=== PATIENT | female | born 2005 | race Caucasian/White ===

== ENCOUNTER 2023-04-10 13:24 | Emergency (ER) | payer BC ==
[~2023-04-10] VITALS: Ht 160 cm; Wt 49.9 kg
[2023-04-10 13:49] VITALS: BP 142/71; PULSE 66; RESP 17; TEMP 97.4; O2SAT 98
[2023-04-10 14:25] LABS: BASOPHILS % (AUTO) 0.2 % (0.0-2.0); HEMATOCRIT 40.8 % (36-48); HEMOGLOBIN 13.7 g/dL (12.0-16.0); LYMPHOCYTES # (AUTO) 0.6 K/uL (2.5-16.5); LYMPHOCYTES % (AUTO) 4.5 % (20.5-51.1); MEAN CORPUSCULAR HEMOGLOBIN 31 pg (27-31); MEAN CORPUSCULAR HGB CONC 33 g/dL (33-37); MEAN CORPUSCULAR VOLUME 92.2 fL (80-94); MONOCYTES # (AUTO) 0.4 K/uL (0.8-1.0); MONOCYTES % (AUTO) 2.9 % (1.7-9.3); NEUTROPHILS # (AUTO) 12.1 K/uL (1.8-7.7); NEUTROPHILS % (AUTO) 92.4 % (42.2-75.2); PLATELET COUNT (AUTO) 213 K/uL (140-450); RED BLOOD CELL COUNT(AUTO) 4.43 MIL/uL (4.20-5.40); RED CELL DISTRIBUTION WIDTH 14.7 % (11.6-13.7); WHITE BLOOD COUNT (AUTO) 13.1 K/uL (4.5-11.0)
[2023-04-10 14:38] LABS: ALBUMIN 3.9 g/dL (3.4-5.0); ANION GAP 18.1 (8-16); CALCIUM 8.5 mg/dL (8.5-10.1); CARBON DIOXIDE 21.2 mmol/L (21-32); CREATININE 0.9 mg/dL (0.6-1.3); TOTAL PROTEIN, SERUM 7.5 g/dL (6.4-8.2)
[2023-04-10 14:42] LABS: POTASSIUM 6.3 mmol/L (3.5-5.1)
[2023-04-10] MEDS ORDERED: PROCHLORPERAZINE 10 MG/2 ML VIAL IVP ONE (14:50)
[2023-04-10] MEDS ORDERED: diphenhydrAMINE 50 MG/ML VIAL IVP ONE (14:50)
[2023-04-10 15:45] VITALS: O2SAT 98
[2023-04-10] MEDS ORDERED: ONDA8TAB87 PO (16:29)
== END 2023-04-10 16:51 | disposition home or self-care (01) ==
LOC: MED 13:24
DX: R11.2 Nausea with vomiting, unspecified (principal); R10.13 Epigastric pain; Z79.899 Other long term (current) drug therapy
CPT/HCPCS: 36415; 80053; 81025; 83690; 84703; 85025; 96374; 96375; 99284; J0780; J1200

== ENCOUNTER 2023-05-25 16:26 | Emergency (ER) | payer BC ==
[~2023-05-25] VITALS: Ht 167.6 cm; Wt 51.7 kg
[~2023-05-25 16:26] MED LIST: ONDA8TAB87 PO
[2023-05-25 16:37] VITALS: BP 109/83; PULSE 85; RESP 18; TEMP 97.4; O2SAT 100
[2023-05-25] MEDS ORDERED: NACL 0.9% 1,000 ML IV ONE (16:50)
[2023-05-25] MEDS ORDERED: ONDANSETRON 4 MG/2 ML VIAL IVP ONE (16:50)
[2023-05-25 17:32] LABS: BASOPHILS # (AUTO) 0.2 K/uL (0.00-0.22); BASOPHILS % (AUTO) 0.9 % (0.0-2.0); EOSINOPHILS % (AUTO) 0.1 % (0.0-4.0); HEMATOCRIT 45.9 % (36-48); HEMOGLOBIN 15.6 g/dL (12.0-16.0); LYMPHOCYTES # (AUTO) 0.9 K/uL (2.5-16.5); LYMPHOCYTES % (AUTO) 4.3 % (20.5-51.1); MEAN CORPUSCULAR HEMOGLOBIN 31 pg (27-31); MEAN CORPUSCULAR HGB CONC 34 g/dL (33-37); MONOCYTES # (AUTO) 0.9 K/uL (0.8-1.0); NEUTROPHILS # (AUTO) 19.9 K/uL (1.8-7.7); NEUTROPHILS % (AUTO) 90.7 % (42.2-75.2); PLATELET COUNT (AUTO) 252 K/uL (140-450); RED BLOOD CELL COUNT(AUTO) 4.98 MIL/uL (4.20-5.40); RED CELL DISTRIBUTION WIDTH 14.7 % (11.6-13.7); WHITE BLOOD COUNT (AUTO) 21.9 K/uL (4.5-11.0)
[2023-05-25] MEDS ORDERED: METOCLOPRAMIDE 10 MG/2 ML INJ VIAL IVP ONE (17:40)
[2023-05-25 17:58] LABS: ALBUMIN 4.4 g/dL (3.4-5.0); ANION GAP 19.1 (8-16); CALCIUM 9.8 mg/dL (8.5-10.1); CARBON DIOXIDE 19.8 mmol/L (21-32); POTASSIUM 3.9 mmol/L (3.5-5.1); TOTAL PROTEIN, SERUM 7.7 g/dL (6.4-8.2)
[2023-05-25] MEDS ORDERED: diphenhydrAMINE 50 MG/ML VIAL IVP ONE (18:25)
[2023-05-25] MEDS ORDERED: HALOPERIDOL IM 5 MG/ML VIAL IVP ONE (19:15)
[2023-05-25 20:06] VITALS: TEMP 97.8
[2023-05-25 20:35] VITALS: BP 119/69; PULSE 64; RESP 12; O2SAT 99
== END 2023-05-25 20:21 | disposition home or self-care (01) ==
LOC: MED 16:26
DX: R11.15 Cyclical vomiting syndrome unrelated to migraine (principal); Z79.899 Other long term (current) drug therapy
CPT/HCPCS: 36415; 80053; 83690; 84703; 85025; 96361; 96374; 96375; 99284; J1200; J1630; J2765; J7030

== ENCOUNTER 2023-06-19 17:51 | Emergency (ER) | payer BC ==
[~2023-06-19] VITALS: Ht 167.6 cm; Wt 52.6 kg
[2023-06-19 18:23] VITALS: BP 122/66; PULSE 108; RESP 20; TEMP 97.9; O2SAT 97
[2023-06-19] MEDS ORDERED: ONDANSETRON 4 MG/2 ML VIAL IVP ONE (18:40)
[2023-06-19] MEDS ORDERED: NACL 0.9% 1,000 ML IV ONE (18:40)
[2023-06-19 19:25] LABS: HEMATOCRIT 43.3 % (36-48); HEMOGLOBIN 14.4 g/dL (12.0-16.0); MEAN CORPUSCULAR HEMOGLOBIN 32 pg (27-31); MEAN CORPUSCULAR HGB CONC 33 g/dL (33-37); MEAN CORPUSCULAR VOLUME 95.2 fL (80-94); PLATELET COUNT (AUTO) 240 K/uL (140-450); RED BLOOD CELL COUNT(AUTO) 4.54 MIL/uL (4.20-5.40); WHITE BLOOD COUNT (AUTO) 22.4 K/uL (4.5-11.0)
[2023-06-19 19:37] LABS: APPEARANCE,URINE CLEAR (CLEAR); BILIRUBIN,URINE 1+ (NEGATIVE); BLOOD, URINE 2+ (NEGATIVE); COLOR,URINE YELLOW (YELLOW); LEUKOCYTE ESTERASE ,URINE NEGATIVE (NEGATIVE); NITRITE, URINE NEGATIVE (NEGATIVE); PROTEIN,URINE TRACE (NEGATIVE); UGLUCOSE NEGATIVE (NEGATIVE); UROBILINOGEN,URINE 0.2 EU/dL (0.2 - 1)
[2023-06-19] MEDS ORDERED: METOCLOPRAMIDE 10 MG/2 ML INJ VIAL IVP ONE (19:40)
[2023-06-19] MEDS ORDERED: diphenhydrAMINE 50 MG/ML VIAL IVP ONE (19:40)
[2023-06-19 19:44] LABS: ALBUMIN 4.7 g/dL (3.4-5.0); ANION GAP 21.5 (8-16); CALCIUM 9.6 mg/dL (8.5-10.1); CARBON DIOXIDE 20.4 mmol/L (21-32); CREATININE 0.9 mg/dL (0.6-1.3); POTASSIUM 3.9 mmol/L (3.5-5.1); TOTAL BILIRUBIN 1.1 mg/dL (0.0-1.0); TOTAL PROTEIN, SERUM 8.2 g/dL (6.4-8.2)
[2023-06-19 19:45] LABS: LYMPHOCYTES % (MANUAL) 4 % (20-46); MONOCYTES % (MANUAL) 2 % (5-12); PLATELET ESTIMATE ADEQUATE
[2023-06-19 19:57] LABS: BACTERIA,URINE 1+ /HPF (None Seen); RBC,URINE 0-5 /HPF (0-5); SQUAMOUS EPITHELIAL CELL,UR 4-10 (MOD) /LPF (0-3 (FEW)); WBC,URINE 0-5 /HPF (0-5)
[2023-06-19 23:10] VITALS: BP 122/66; PULSE 108; RESP 20; TEMP 97.9; O2SAT 97
== END 2023-06-19 23:10 | disposition home or self-care (01) ==
LOC: MED 17:51
DX: F10.129 Alcohol abuse with intoxication, unspecified (principal); R11.2 Nausea with vomiting, unspecified; Z79.899 Other long term (current) drug therapy; Y90.9 Presence of alcohol in blood, level not specified
CPT/HCPCS: 36415; 80053; 81001; 81025; 83690; 85025; 96361; 96374; 96375; 99284; J1200; J2405; J2765; J7030

== ENCOUNTER 2023-07-01 11:17 | Emergency (ER) | payer BC ==
[~2023-07-01] VITALS: Ht 167.6 cm; Wt 53.5 kg
[2023-07-01 11:56] VITALS: BP 113/74; PULSE 103; RESP 18; TEMP 97.4; O2SAT 99
[2023-07-01] MEDS ORDERED: ONDANSETRON 4 MG/2 ML VIAL IVP ONE (12:15)
[2023-07-01] MEDS ORDERED: FAMOTIDINE 20 MG/2 ML VIAL IVP ONE (12:15)
[2023-07-01] MEDS ORDERED: NACL 0.9% 1,000 ML IV ONE (12:15)
[2023-07-01] MEDS ORDERED: diphenhydrAMINE 50 MG/ML VIAL IVP ONE (12:20)
[2023-07-01] MEDS ORDERED: METOCLOPRAMIDE 10 MG/2 ML INJ VIAL IVP ONE (12:20)
[2023-07-01 12:42] LABS: BASOPHILS # (AUTO) 0.1 K/uL (0.00-0.22); BASOPHILS % (AUTO) 0.3 % (0.0-2.0); EOSINOPHILS % (AUTO) 0.1 % (0.0-4.0); HEMATOCRIT 41.8 % (36-48); HEMOGLOBIN 14.1 g/dL (12.0-16.0); LYMPHOCYTES # (AUTO) 1.5 K/uL (2.5-16.5); LYMPHOCYTES % (AUTO) 8.3 % (20.5-51.1); MEAN CORPUSCULAR HEMOGLOBIN 32 pg (27-31); MEAN CORPUSCULAR HGB CONC 34 g/dL (33-37); MEAN CORPUSCULAR VOLUME 93.9 fL (80-94); MONOCYTES # (AUTO) 0.6 K/uL (0.8-1.0); MONOCYTES % (AUTO) 3.6 % (1.7-9.3); NEUTROPHILS # (AUTO) 15.4 K/uL (1.8-7.7); NEUTROPHILS % (AUTO) 87.7 % (42.2-75.2); PLATELET COUNT (AUTO) 278 K/uL (140-450); RED BLOOD CELL COUNT(AUTO) 4.45 MIL/uL (4.20-5.40); RED CELL DISTRIBUTION WIDTH 13.2 % (11.6-13.7); WHITE BLOOD COUNT (AUTO) 17.5 K/uL (4.5-11.0)
[2023-07-01 12:52] LABS: ALBUMIN 4.2 g/dL (3.4-5.0); ANION GAP 18.2 (8-16); CALCIUM 9.3 mg/dL (8.5-10.1); CARBON DIOXIDE 22.4 mmol/L (21-32); CREATININE 0.9 mg/dL (0.6-1.3); POTASSIUM 3.6 mmol/L (3.5-5.1); TOTAL BILIRUBIN 0.5 mg/dL (0.0-1.0); TOTAL PROTEIN, SERUM 7.8 g/dL (6.4-8.2)
[2023-07-01] MEDS ORDERED: HALOPERIDOL IM 5 MG/ML VIAL IM ONE (13:05)
[2023-07-01] MEDS ORDERED: FAMO-90 PO (13:25)
[2023-07-01] MEDS ORDERED: METO-485 PO (13:25)
[2023-07-01 14:11] VITALS: BP 134/80; PULSE 71; RESP 17; O2SAT 99
[2023-07-01 15:00] LABS: AMPHETAMINE, URINE NEGATIVE ng/ml (NEG <=1000); BARBITURATE, URINE NEGATIVE ng/ml (NEG <=200); BENZODIAZEPINE, URINE NEGATIVE ng/mL (NEG <=200); CANNABINOID, URINE POSITIVE ng/mL (NEG <=50); COCAINE, URINE NEGATIVE ng/mL (NEG <=300); OPIATE, URINE NEGATIVE ng/mL (NEG <=2000); PHENCYCLIDINE SCREEN,URINE NEGATIVE ng/mL (NEG <=25)
[2023-07-01 15:04] LABS: APPEARANCE,URINE CLEAR (CLEAR); BILIRUBIN,URINE NEGATIVE (NEGATIVE); BLOOD, URINE TRACE-I (NEGATIVE); COLOR,URINE YELLOW (YELLOW); LEUKOCYTE ESTERASE ,URINE NEGATIVE (NEGATIVE); NITRITE, URINE NEGATIVE (NEGATIVE); PH,URINE 7.5 (5.0-9.0); PROTEIN,URINE NEGATIVE (NEGATIVE); UGLUCOSE NEGATIVE (NEGATIVE); UROBILINOGEN,URINE 0.2 EU/dL (0.2 - 1)
[2023-07-01 15:59] LABS: BACTERIA,URINE 3+ /HPF (None Seen); MUCUS,URINE None Seen /LPF (None Seen); RBC,URINE 0-5 /HPF (0-5); TRICHOMONAS,URINE None Seen /HPF (None Seen); WBC,URINE 0-5 /HPF (0-5); YEAST,URINE None Seen /HPF (None Seen)
== END 2023-07-01 14:11 | disposition home or self-care (01) ==
LOC: MED 11:17
DX: R11.2 Nausea with vomiting, unspecified (principal); Z79.899 Other long term (current) drug therapy
CPT/HCPCS: 36415; 80053; 80305; 81001; 81025; 85025; 87086; 96361; 96372; 96374; 96375; 99284; J1200; J1630; J2405; J2765; J3490; J7030

== ENCOUNTER 2023-07-21 12:00 | Emergency (ER) | payer BC ==
[~2023-07-21] VITALS: Ht 162.6 cm; Wt 59.0 kg
[~2023-07-21 12:00] MED LIST changes: +FAMO-90 PO; +METO-485 PO
[2023-07-21 12:24] VITALS: BP 122/76; PULSE 89; RESP 18; TEMP 98; O2SAT 98
[2023-07-21] MEDS ORDERED: PROCHLORPERAZINE 10 MG/2 ML VIAL IVP ONE (12:40)
[2023-07-21] MEDS ORDERED: NACL 0.9% 1,000 ML IV SCH (12:40)
[2023-07-21] MEDS ORDERED: FAMOTIDINE 20 MG/2 ML VIAL IVP ONE (12:40)
[2023-07-21] MEDS ORDERED: LORazepam 2 MG/ML VIAL IVP ONE (12:40)
[2023-07-21 12:59] LABS: BASOPHILS % (AUTO) 0.2 % (0.0-2.0); HEMATOCRIT 41.5 % (36-48); HEMOGLOBIN 13.9 g/dL (12.0-16.0); LYMPHOCYTES # (AUTO) 0.8 K/uL (2.5-16.5); LYMPHOCYTES % (AUTO) 5.1 % (20.5-51.1); MEAN CORPUSCULAR HEMOGLOBIN 32 pg (27-31); MEAN CORPUSCULAR HGB CONC 34 g/dL (33-37); MEAN CORPUSCULAR VOLUME 94.8 fL (80-94); MONOCYTES # (AUTO) 0.3 K/uL (0.8-1.0); NEUTROPHILS # (AUTO) 14.7 K/uL (1.8-7.7); NEUTROPHILS % (AUTO) 92.7 % (42.2-75.2); PLATELET COUNT (AUTO) 237 K/uL (140-450); RED BLOOD CELL COUNT(AUTO) 4.38 MIL/uL (4.20-5.40); RED CELL DISTRIBUTION WIDTH 13.1 % (11.6-13.7); WHITE BLOOD COUNT (AUTO) 15.9 K/uL (4.5-11.0)
[2023-07-21 13:20] LABS: ANION GAP 20.7 (8-16); CALCIUM 9.2 mg/dL (8.5-10.1); CARBON DIOXIDE 20.1 mmol/L (21-32); CREATININE 0.9 mg/dL (0.6-1.3); POTASSIUM 3.8 mmol/L (3.5-5.1)
[2023-07-21] MEDS ORDERED: ONDA-188 PO (14:16)
[2023-07-21 14:43] VITALS: BP 120/76; PULSE 69; RESP 15; TEMP 98; O2SAT 98
[2023-07-22] MEDS ORDERED: METO-485 PO (15:10)
== END 2023-07-21 14:43 | disposition home or self-care (01) ==
LOC: MED 12:00
DX: R11.2 Nausea with vomiting, unspecified (principal); R10.10 Upper abdominal pain, unspecified; Z79.899 Other long term (current) drug therapy
CPT/HCPCS: 36415; 80048; 81025; 83690; 85025; 96361; 96374; 96375; 99284; J0780; J2060; J3490; J7030; 99285

== ENCOUNTER 2023-07-22 12:29 | Emergency (ER) | payer BC ==
[~2023-07-22] VITALS: Ht 167.6 cm; Wt 52.6 kg
[~2023-07-22 12:29] MED LIST changes: +ONDA-188 PO
[2023-07-22 12:43] VITALS: BP 123/89; PULSE 92; RESP 18; TEMP 98; O2SAT 99
[2023-07-22 13:00] VITALS: O2SAT 99
[2023-07-22] MEDS ORDERED: diphenhydrAMINE 50 MG/ML VIAL IVP ONE (13:40)
[2023-07-22] MEDS ORDERED: NACL 0.9% 1,000 ML IV SCH (13:40)
[2023-07-22] MEDS ORDERED: HALOPERIDOL IM 5 MG/ML VIAL IM ONE (13:40)
[2023-07-22 14:21] LABS: BASOPHILS % (AUTO) 0.1 % (0.0-2.0); EOSINOPHILS % (AUTO) 0.1 % (0.0-4.0); HEMOGLOBIN 14.5 g/dL (12.0-16.0); LYMPHOCYTES # (AUTO) 0.7 K/uL (2.5-16.5); LYMPHOCYTES % (AUTO) 7.5 % (20.5-51.1); MEAN CORPUSCULAR HEMOGLOBIN 32 pg (27-31); MEAN CORPUSCULAR HGB CONC 34 g/dL (33-37); MEAN CORPUSCULAR VOLUME 95.1 fL (80-94); MONOCYTES # (AUTO) 0.3 K/uL (0.8-1.0); MONOCYTES % (AUTO) 3.2 % (1.7-9.3); NEUTROPHILS # (AUTO) 8.7 K/uL (1.8-7.7); NEUTROPHILS % (AUTO) 89.1 % (42.2-75.2); PLATELET COUNT (AUTO) 197 K/uL (140-450); RED BLOOD CELL COUNT(AUTO) 4.52 MIL/uL (4.20-5.40); RED CELL DISTRIBUTION WIDTH 13.6 % (11.6-13.7); WHITE BLOOD COUNT (AUTO) 9.8 K/uL (4.5-11.0)
[2023-07-22] MEDS ORDERED: METOCLOPRAMIDE 10 MG/2 ML INJ VIAL IVP ONE (14:35)
[2023-07-22] MEDS ORDERED: ALUMINUM HYD/MAG/SIMETHICONE 30 ML, DICYCLOMINE HCL LIQUID 20 MG, LIDOCAINE VISCOUS 2% ... PO ONE ×3 (14:45)
[2023-07-22 14:49] LABS: ALBUMIN 4.4 g/dL (3.4-5.0); ANION GAP 18.4 (8-16); CALCIUM 9.2 mg/dL (8.5-10.1); CARBON DIOXIDE 22.5 mmol/L (21-32); CREATININE 0.8 mg/dL (0.6-1.3); POTASSIUM 4.9 mmol/L (3.5-5.1); TOTAL BILIRUBIN 0.7 mg/dL (0.0-1.0); TOTAL PROTEIN, SERUM 7.8 g/dL (6.4-8.2)
[2023-07-22] MEDS ORDERED: DICYCLOMINE HCL LIQUID 10 MG/5 ML UDC ONE (14:52)
[2023-07-22] MEDS ORDERED: ALUMINUM HYD/MAG/SIMETHICONE 30 ML UDC ONE (14:52)
[2023-07-22 14:57] VITALS: PULSE 92
[2023-07-22] MEDS ORDERED: DICYCLOMINE HCL LIQUID 20 MG, ALUMINUM HYD/MAG/SIMETHICONE 30 ML, LIDOCAINE VISCOUS 2% ... PO ONE ×3 (15:00)
[2023-07-22] MEDS ORDERED: METO-485 PO (15:10)
[2023-07-22] MEDS ORDERED: KETOROLAC 30 MG/ML VIAL IVP ONE (15:10)
[2023-07-22 16:32] VITALS: BP 124/89; RESP 14; TEMP 97.7; O2SAT 89
== END 2023-07-22 16:28 | disposition home or self-care (01) ==
LOC: MED 12:29
DX: R11.2 Nausea with vomiting, unspecified (principal); R10.13 Epigastric pain; Z79.899 Other long term (current) drug therapy
CPT/HCPCS: 36415; 80053; 83690; 84703; 85025; 96361; 96374; 96375; 99284; J1200; J1885; J2765; J1630; J7030

== ENCOUNTER 2023-10-08 21:02 | Emergency (ER) | payer BC ==
[~2023-10-08] VITALS: Ht 167.6 cm; Wt 49.9 kg
[2023-10-08 21:20] VITALS: BP 125/83; PULSE 77; RESP 18; TEMP 97.8; O2SAT 97
[2023-10-08 21:25] VITALS: O2SAT 97
[2023-10-08 22:13] LABS: BASOPHILS % (AUTO) 0.2 % (0.0-2.0); HEMOGLOBIN 14.5 g/dL (12.0-16.0); LYMPHOCYTES # (AUTO) 0.5 K/uL (2.5-16.5); LYMPHOCYTES % (AUTO) 3.1 % (20.5-51.1); MEAN CORPUSCULAR HEMOGLOBIN 32 pg (27-31); MEAN CORPUSCULAR HGB CONC 35 g/dL (33-37); MEAN CORPUSCULAR VOLUME 93.5 fL (80-94); MONOCYTES # (AUTO) 0.3 K/uL (0.8-1.0); MONOCYTES % (AUTO) 1.6 % (1.7-9.3); NEUTROPHILS # (AUTO) 15.8 K/uL (1.8-7.7); NEUTROPHILS % (AUTO) 95.1 % (42.2-75.2); PLATELET COUNT (AUTO) 186 K/uL (140-450); RED BLOOD CELL COUNT(AUTO) 4.49 MIL/uL (4.20-5.40); RED CELL DISTRIBUTION WIDTH 13.7 % (11.6-13.7); WHITE BLOOD COUNT (AUTO) 16.6 K/uL (4.5-11.0)
[2023-10-08 22:20] LABS: ANION GAP 16.1 (8-16); CALCIUM 9.4 mg/dL (8.5-10.1); CARBON DIOXIDE 25.5 mmol/L (21-32); CREATININE 0.8 mg/dL (0.6-1.3); POTASSIUM 4.6 mmol/L (3.5-5.1)
[2023-10-08 22:27] LABS: ALBUMIN 4.1 g/dL (3.4-5.0); BILIRUBIN,DIRECT 0.1 mg/dL (0.0-0.3); TOTAL BILIRUBIN 0.5 mg/dL (0.0-1.0); TOTAL PROTEIN, SERUM 8.4 g/dL (6.4-8.2)
[2023-10-08] MEDS ORDERED: ONDA-188 SL (23:39)
[2023-10-08] MEDS: ONDANSETRON 4 MG ODT PO ONE (23:46)
== END 2023-10-08 23:43 | disposition home or self-care (01) ==
LOC: MED 21:02
DX: R11.2 Nausea with vomiting, unspecified (principal); R10.9 Unspecified abdominal pain; F12.90 Cannabis use, unspecified, uncomplicated; F17.200 Nicotine dependence, unspecified, uncomplicated; Z71.6 Tobacco abuse counseling; Z79.899 Other long term (current) drug therapy
CPT/HCPCS: 36415; 80048; 80076; 81025; 83690; 85025; 99283; Q0162

== ENCOUNTER 2023-10-10 12:38 | Emergency (ER) | payer BC ==
[~2023-10-10] VITALS: Ht 167.6 cm; Wt 49.9 kg
[~2023-10-10 12:38] MED LIST changes: +ONDA-188 SL
[2023-10-10 12:49] VITALS: BP 131/89; PULSE 88; RESP 19; TEMP 98.7; O2SAT 99
[2023-10-10] MEDS: METOCLOPRAMIDE 10 MG/2 ML INJ VIAL IM ONE (13:26)
[2023-10-10] MEDS: LORazepam 2 MG/ML VIAL IM ONE (13:27)
[2023-10-10] MEDS ORDERED: METO-486 PO (14:18)
== END 2023-10-10 14:30 | disposition home or self-care (01) ==
LOC: MED 12:38
DX: R11.2 Nausea with vomiting, unspecified (principal); R10.10 Upper abdominal pain, unspecified; Z79.899 Other long term (current) drug therapy
CPT/HCPCS: 96372; 99284; J2060; J2765

== ENCOUNTER 2023-12-07 14:37 | Emergency (ER) | payer BC ==
[~2023-12-07] VITALS: Ht 167.6 cm; Wt 49.9 kg
[~2023-12-07 14:37] MED LIST changes: +METO-486 PO
[2023-12-07 14:42] VITALS: BP 102/62; PULSE 75; RESP 21; TEMP 97.6; O2SAT 99
[2023-12-07] MEDS: NACL 0.9% 1,000 ML IV ONE (15:10)
[2023-12-07] MEDS: FAMOTIDINE 20 MG/2 ML VIAL IVP ONE (15:11)
[2023-12-07] MEDS: ONDANSETRON 4 MG/2 ML VIAL IVP ONE (15:12)
[2023-12-07 15:15] LABS: BASOPHILS % (AUTO) 0.2 % (0.0-2.0); EOSINOPHILS # (AUTO) 0.1 K/uL (0-0.4); EOSINOPHILS % (AUTO) 0.5 % (0.0-4.0); HEMATOCRIT 43.6 % (36-48); HEMOGLOBIN 14.9 g/dL (12.0-16.0); LYMPHOCYTES # (AUTO) 1.5 K/uL (2.5-16.5); MEAN CORPUSCULAR HEMOGLOBIN 32 pg (27-31); MEAN CORPUSCULAR HGB CONC 34 g/dL (33-37); MEAN CORPUSCULAR VOLUME 93.8 fL (80-94); MONOCYTES # (AUTO) 0.5 K/uL (0.8-1.0); MONOCYTES % (AUTO) 2.9 % (1.7-9.3); NEUTROPHILS # (AUTO) 14.5 K/uL (1.8-7.7); NEUTROPHILS % (AUTO) 87.4 % (42.2-75.2); PLATELET COUNT (AUTO) 273 K/uL (140-450); RED BLOOD CELL COUNT(AUTO) 4.65 MIL/uL (4.20-5.40); RED CELL DISTRIBUTION WIDTH 13.8 % (11.6-13.7); WHITE BLOOD COUNT (AUTO) 16.6 K/uL (4.5-11.0)
[2023-12-07 15:27] LABS: ANION GAP 20.8 (8-16); CALCIUM 9.4 mg/dL (8.5-10.1); CARBON DIOXIDE 21.3 mmol/L (21-32); CREATININE 0.8 mg/dL (0.6-1.3); POTASSIUM 4.1 mmol/L (3.5-5.1)
[2023-12-07 15:32] LABS: ALBUMIN 4.2 g/dL (3.4-5.0); BILIRUBIN,DIRECT 0.3 mg/dL (0.0-0.3); TOTAL BILIRUBIN 0.9 mg/dL (0.0-1.0); TOTAL PROTEIN, SERUM 7.6 g/dL (6.4-8.2)
[2023-12-07] MEDS: METOCLOPRAMIDE 10 MG/2 ML INJ VIAL IVP ONE (15:45)
[2023-12-07] MEDS: LORazepam 2 MG/ML VIAL IVP ONE (16:15)
[2023-12-07] MEDS ORDERED: METO-486 PO (16:39)
[2023-12-07 16:51] VITALS: BP 114/70; PULSE 74; RESP 17; O2SAT 98
== END 2023-12-07 16:51 | disposition home or self-care (01) ==
LOC: MED 14:37
DX: K29.20 Alcoholic gastritis without bleeding (principal); F12.90 Cannabis use, unspecified, uncomplicated; Z79.899 Other long term (current) drug therapy
CPT/HCPCS: 36415; 80048; 80076; 83690; 84703; 85025; 96361; 96374; 96375; 99284; J2060; J2405; J2765; J3490; J7030

== ENCOUNTER 2024-03-11 11:13 | Emergency (ER) | payer BC ==
[~2024-03-11] VITALS: Ht 167.6 cm; Wt 48.5 kg
[2024-03-11 11:25] VITALS: BP 117/66; PULSE 85; RESP 18; TEMP 98.1; O2SAT 97
[2024-03-11] MEDS: HALOPERIDOL IM 5 MG/ML VIAL IM ONE (11:50)
[2024-03-11] MEDS: NACL 0.9% 1,000 ML IV ONE (12:23)
[2024-03-11 12:29] LABS: BASOPHILS % (AUTO) 0.2 % (0.0-2.0); HEMATOCRIT 44.2 % (36-48); HEMOGLOBIN 14.8 g/dL (12.0-16.0); LYMPHOCYTES # (AUTO) 0.8 K/uL (2.5-16.5); LYMPHOCYTES % (AUTO) 6.1 % (20.5-51.1); MEAN CORPUSCULAR HEMOGLOBIN 32 pg (27-31); MEAN CORPUSCULAR HGB CONC 34 g/dL (33-37); MEAN CORPUSCULAR VOLUME 94.6 fL (80-94); MONOCYTES # (AUTO) 0.3 K/uL (0.8-1.0); MONOCYTES % (AUTO) 2.6 % (1.7-9.3); NEUTROPHILS # (AUTO) 12.3 K/uL (1.8-7.7); NEUTROPHILS % (AUTO) 91.1 % (42.2-75.2); PLATELET COUNT (AUTO) 209 K/uL (140-450); RED BLOOD CELL COUNT(AUTO) 4.67 MIL/uL (4.20-5.40); RED CELL DISTRIBUTION WIDTH 13.5 % (11.6-13.7); WHITE BLOOD COUNT (AUTO) 13.6 K/uL (4.5-11.0)
[2024-03-11 12:47] LABS: ANION GAP 12.6 (8-16); CALCIUM 9.3 mg/dL (8.5-10.1); CARBON DIOXIDE 27.4 mmol/L (21-32)
[2024-03-11 12:53] LABS: ALBUMIN 4.3 g/dL (3.4-5.0); BILIRUBIN,DIRECT 0.1 mg/dL (0.0-0.3); TOTAL PROTEIN, SERUM 7.9 g/dL (6.4-8.2)
[2024-03-11 13:04] LABS: TOTAL BILIRUBIN 0.4 mg/dL (0.0-1.0)
[2024-03-11 13:30] VITALS: BP 106/45; PULSE 69; RESP 16; TEMP 97.8; O2SAT 98
[2024-03-11] MEDS ORDERED: METOCLOPRAMIDE 10 MG/2 ML INJ VIAL ONE (13:44)
[2024-03-11] MEDS: METOCLOPRAMIDE 10 MG/2 ML INJ VIAL IVP ONE (13:47)
[2024-03-11] MEDS: diphenhydrAMINE 50 MG/ML VIAL IVP ONE (14:00)
[2024-03-11] MEDS ORDERED: METO-485 PO (14:03)
== END 2024-03-11 14:12 | disposition home or self-care (01) ==
LOC: MED 11:13
DX: R11.2 Nausea with vomiting, unspecified (principal); F12.90 Cannabis use, unspecified, uncomplicated; F17.200 Nicotine dependence, unspecified, uncomplicated; Z71.6 Tobacco abuse counseling; Z79.899 Other long term (current) drug therapy
CPT/HCPCS: 36415; 80048; 80076; 81025; 83690; 85025; 96361; 96374; 99283; J2765; J7030; J1200